=== PATIENT | female | born 1975 | race Native Hawaiian/Other Pacific Islander ===

== ENCOUNTER 2019-01-15 19:11 | Emergency (ER) | payer OTHER ==
[~2019-01-15] VITALS: Ht 165.1 cm; Wt 59.0 kg
[2019-01-15 20:30] VITALS: BP 116/75; TEMP 97.7
== END 2019-01-15 21:04 | disposition home or self-care (01) ==
LOC: ED 19:11
DX: K59.00 Constipation, unspecified (principal); R10.9 Unspecified abdominal pain
CPT/HCPCS: 99281